=== PATIENT | female | born 1965 | race Caucasian/White ===

== ENCOUNTER 2017-07-07 11:50 | Emergency (ER) | payer OTHER ==
[~2017-07-07] VITALS: Ht 180.3 cm; Wt 132.9 kg
[~2017-07-07 11:50] MED LIST: BACTRIM DS TAB1 EACH PO; COLACE100 MG PO; DIFLUCAN150 MG PO; FLAGYL500 MG PO; IBUPROFEN 200200 M1 PO; MELADOX3 MG PO; MELATONIN3 MG PO; NORCO 5-325 TA1 EACH PO; PHENERGAN 25 MG25 MG PO; TUMS PO; TYGACIL50 MG IV; VICODIN HP 10-1 EAC1 PO; VOLTAREN50 MG PO
[2017-07-07] MEDS ORDERED: PROTONIX40 M1 PO (13:00)
[2017-07-07] MEDS ORDERED: LOPERAMIDE 2 MG2 M1 PO (13:00)
[2017-07-07] MEDS ORDERED: VITAMIN D5000 UNIT PO (13:01)
[2017-07-07] MEDS ORDERED: MOBIC7.5 MG PO (13:02)
== END 2017-07-07 13:10 | disposition home or self-care (01) ==
LOC: ER 11:50
DX: M79.675 Pain in left toe(s) (principal); F17.210 Nicotine dependence, cigarettes, uncomplicated; Z88.1 Allergy status to other antibiotic agents; Z88.0 Allergy status to penicillin

== ENCOUNTER 2017-07-18 11:02 | Emergency (ER) | payer OTHER ==
[~2017-07-18] VITALS: Ht 180.3 cm; Wt 132.9 kg
[~2017-07-18 11:02] MED LIST changes: +LOPERAMIDE 2 MG2 M1 PO; +MOBIC7.5 MG PO; +PROTONIX40 M1 PO; +VITAMIN D5000 UNIT PO
[2017-07-18] MEDS ORDERED: PROTONIX40 M1 PO (11:19)
[2017-07-18] MEDS ORDERED: LOPERAMIDE 2 MG2 M1 PO (11:20)
[2017-07-18] MEDS ORDERED: MELATONIN5 M1 PO (11:21)
[2017-07-18] MEDS ORDERED: TYLENOL EXTRA500 MG PO (11:22)
[2017-07-18 12:05] LABS: ABSOLUTE NEUTROPHILS 3.2 thou/uL (1.4-8.2); BASOPHILS 0.6 % (0.0-2.0); EOSINOPHILS 5.4 % (0.0-3.0); HEMATOCRIT 37.5 % (37.0-47.0); HEMOGLOBIN 12.3 gm/dL (12.0-15.0); LYMPHOCYTES 40.5 % (24.0-44.0); MCH 26.1 pg (26.0-34.0); MCHC 32.9 g/dL (28.0-37.0); MCV 79.5 fL (80.0-100.0); MONOCYTES 6.3 % (1.0-8.0); PLATELET COUNT 219 thou/uL (150-400); POLYS 47.2 % (36.0-66.0); RBC 4.72 mil/uL (4.20-5.00); RDW 14.6 % (10.5-14.5); WBC 6.7 thou/uL (4.0-11.0)
[2017-07-18 12:12] LABS: CALCIUM 9.6 mg/dL (8.5-10.1); CREATININE 0.9 mg/dL (0.6-1.0); POTASSIUM 3.8 mmol/L (3.5-5.1)
[2017-07-18] MEDS ORDERED: HYDROCODONE-AP1 EAC6 PO (12:34)
[2017-07-18] MEDS ORDERED: PREDNISONE 20 M20 MG PO (12:34)
== END 2017-07-18 13:07 | disposition home or self-care (01) ==
LOC: ER 11:02
PROVIDERS: Physician Assistant
DX: T80.62XA Other serum reaction due to vaccination, initial encounter (principal); T50.Z95A Adverse effect of other vaccines and biological substances, initial encounter; F41.9 Anxiety disorder, unspecified; F17.210 Nicotine dependence, cigarettes, uncomplicated; Z88.7 Allergy status to serum and vaccine; Z88.5 Allergy status to narcotic agent; Z88.0 Allergy status to penicillin; Z88.1 Allergy status to other antibiotic agents; Z88.8 Allergy status to other drugs, medicaments and biological substances; Y92.89 Other specified places as the place of occurrence of the external cause

== ENCOUNTER 2017-08-02 17:36 | Emergency (ER) | payer OTHER ==
[~2017-08-02] VITALS: Ht 180.3 cm; Wt 132.9 kg
[~2017-08-02 17:36] MED LIST changes: +HYDROCODONE-AP1 EAC6 PO; +MELATONIN5 M1 PO; +PREDNISONE 20 M20 MG PO; +TYLENOL EXTRA500 MG PO
== END 2017-08-02 18:45 | disposition home or self-care (01) ==
LOC: ER 17:36
DX: S61.011A Laceration without foreign body of right thumb without damage to nail, initial encounter (principal); Z23 Encounter for immunization; F17.210 Nicotine dependence, cigarettes, uncomplicated; Z88.7 Allergy status to serum and vaccine; Z88.1 Allergy status to other antibiotic agents; Z88.5 Allergy status to narcotic agent; Z88.0 Allergy status to penicillin; Z88.2 Allergy status to sulfonamides; W26.0XXA Contact with knife, initial encounter; Y93.89 Activity, other specified; Y92.89 Other specified places as the place of occurrence of the external cause; Y99.8 Other external cause status